=== PATIENT | male | born 1985 | race Caucasian/White ===

== ENCOUNTER 2020-11-25 08:40 | Emergency (ER) | payer MEDICAID ==
[~2020-11-25] VITALS: Ht 188 cm; Wt 64.5 kg
[~2020-11-25 08:40] MED LIST: CIPR500T87 PO; METR500T PO; OXYcodone/APAP 5/325MG PO
--- NOTE | 2020-11-25 09:25 | NUR ---
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
--- NOTE | 2020-11-25 09:31 | NUR ---
P[T TO CT VIA [facility]
[2020-11-25] MEDS ORDERED: KETOROLAC 30 MG/1 ML IVPush ONE (10:00)
[2020-11-25] MEDS ORDERED: HYDROmorphone 1 MG/ML, 1ML INJ IV ONE (10:00)
[2020-11-25] MEDS ORDERED: ONDANSETRON 2MG/ML, 2ML IVPush ONE (10:00)
[2020-11-25] MEDS ORDERED: KETOROLAC 30 MG/1 ML ONE (10:12)
[2020-11-25] MEDS ORDERED: ONDANSETRON 2MG/ML, 2ML ONE (10:13)
[2020-11-25] MEDS ORDERED: HYDROmorphone 1 MG/ML, 1ML INJ ONE (10:13)
--- NOTE | 2020-11-25 10:39 | NUR ---
ASSUME CARE OF PT AT THIS TIME. PT SITTING RECLINED IN BED, VERBALIZES RELIEF FROM PAIN FOLLOWING DILAUDID MED. PT DESAT ON RA, PLACED ON NC AND SATURATING WELL ON 2L. NAD NOTED AT THIS TIME. SIDE RAILS UP, CALL LIGHT IN REACH.
--- NOTE | 2020-11-25 11:34 | NUR ---
PT GIVEN PO FLUIDS FOR COMFORT. NAD NOTED AT THIS TIME. AWAITING UA RESULTS.
[2020-11-25 12:13] LABS: MICROSCOPIC INDICATED
[2020-11-25 13:08] VITALS: BP 110/67
== END 2020-11-25 13:10 | disposition home or self-care (01) ==
LOC: ED 10:02
DX: N20.2 Calculus of kidney with calculus of ureter (principal); R10.9 Unspecified abdominal pain; Z87.891 Personal history of nicotine dependence
CPT/HCPCS: 74176; 81001; 96374; 96375; 99284; J1170; J1885; J2405